=== PATIENT | female | born 1985 | race Two or more races ===

== ENCOUNTER 2024-08-26 22:22 | Inpatient (IN) | payer OTHER ==
[~2024-08-26] VITALS: Ht 160 cm; Wt 97.5 kg
[2024-08-26] MEDS ORDERED: LEVOTHYROXINE25 MCG (22:52)
[2024-08-26] MEDS ORDERED: SINGULAIR4 M1 (22:52)
[2024-08-26] MEDS ORDERED: 0.9 % SODIUM CHLORIDE 1,000 ML IV ONE (23:15)
[2024-08-26] MEDS ORDERED: MORPHINE SULFATE 4 MG/ML VIAL IV ONE (23:15)
[2024-08-26] MEDS ORDERED: FAMOtidine 10 MG/ML (4ML VIAL) IV ONE (23:15)
[2024-08-27 01:27] LABS: BASO % 0.4 % (0.1-1.2); EOS # 0.22 (0.04-0.54); EOS % 1.9 % (0.7-7.0); LYMPH # 1.53 (1.18-3.74); LYMPH % 12.9 % (19.3-53.1); MEAN PLATELET VOLUME 10.40 fl (9.4-12.4); MONO # 0.58 (0.24-0.82); MONO % 4.9 % (4.7-12.5); NEUT # 9.38 (1.56-6.13); NEUT % 79.1 % (34.0-71.1); RED CELL DISTRIBUTION WIDTH 13.2 % (11.6-14.4)
[2024-08-27 01:30] LABS: INR 1.05
[2024-08-27 02:10] LABS: ALT/SGPT 19.0 U/L (12-78); AST/SGOT 12.0 U/L (15-37); BILIRUBIN TOTAL 0.27 mg/dL (0.3-1.2); BUN CREA RATIO 27.0 (7.0-25.0); CREATININE SERUM 0.56 mg/dL (0.55-1.02); GFR 119.9; GLOBULINA 3.2 G/DL (2.4-3.5); GLUCOSE FASTING 119.0 mg/dL (65-100); HCG QUANTITATIVE 146.0 mUI/mL (1-3); OSMOLALITY SERUM 278.0 MOSM/KG (275-295)
[2024-08-27 04:00] VITALS: O2SAT 100
[2024-08-27 08:48] VITALS: BP 89/59
[2024-08-27 09:41] VITALS: BP 97/60
[2024-08-27] MEDS ORDERED: GUAIFENESIN 200 MG/10 ML BLIST.PACK PO PRN (12:00)
[2024-08-27] MEDS ORDERED: ALBUTEROL SULFATE 3 ML/2.5 MG AMPUL.NEB IH SCH (13:00)
[2024-08-27 15:53] VITALS: BP 112/72
[2024-08-27 22:06] LABS: BASO % 0.6 % (0.1-1.2); EOS # 0.43 (0.04-0.54); EOS % 4.4 % (0.7-7.0); LYMPH # 2.54 (1.18-3.74); LYMPH % 26.3 % (19.3-53.1); MEAN PLATELET VOLUME 9.50 fl (9.4-12.4); MONO # 0.65 (0.24-0.82); MONO % 6.7 % (4.7-12.5); NEUT # 5.83 (1.56-6.13); NEUT % 60.3 % (34.0-71.1); RED CELL DISTRIBUTION WIDTH 14.0 % (11.6-14.4)
[2024-08-28 00:36] VITALS: BP 102/60
[2024-08-28 04:00] VITALS: BP 109/72
[2024-08-28 08:00] VITALS: BP 118/79
[2024-08-29] MEDS ORDERED: LEVOTHYROXINE SODIUM 75 MCG TABLET PO SCH (06:00)
== END 2024-08-28 09:01 | disposition home or self-care (01) | DRG 779 ==
LOC: ER 22:22 → O/R 08-27 07:27 → OB/GYN 08-27 07:27
PROVIDERS: General Practice; ADMIT Obstetrics & Gynecology; ATTEND Obstetrics & Gynecology
PROC: BU4CZZZ Ultrasonography of Uterus and Ovaries (ICD-10-PCS; 2024-08-26)
PROC: 30233N1 Transfusion of Nonautologous Red Blood Cells into Peripheral Vein, Percutaneous Approach (ICD-10-PCS; principal; 2024-08-27)
DX: O03.6 Delayed or excessive hemorrhage following complete or unspecified spontaneous abortion (principal); N93.9 Abnormal uterine and vaginal bleeding, unspecified; D51.0 Vitamin B12 deficiency anemia due to intrinsic factor deficiency